=== PATIENT | female | born 1975 | race Caucasian/White ===

== ENCOUNTER → 2016-12-31 | Outpatient (CLI) | payer OTHER ==
[~2016-12-31] MED LIST: ALBU1AER9 INH; ASCO1CAP3 PO; BNT20 PO; CYM/30 PO; DIPH25TA24 PO; ESZO3TAB15 PO; GADAVIST IV PRN; LEVO1INJ13 PO; MAGN500T15 PO; MTR600X PO; OXYC-57 PO; PRLSR20 PO; PROM25TA9 PO; SALS500T10 PO; TIZA1CAP2 PO
--- NOTE | 2016-12-31 14:38 | DIAGNOSTIC IMAGING REPORT ---
MRI OF THE BRAIN WITHOUT AND WITH IV CONTRAST CLINICAL HISTORY: Headache. Abnormal previous MRI. COMPARISON STUDY: MRI of the brain January 26, 2013. TECHNIQUE: Utilizing a 1.5 Anne magnet and dedicated coil, multiplanar, multiecho imaging of the brain was performed pre and postcontrast administration. IV administration of 7.3 mL of Gadavist contrast was uneventful. FINDINGS: There are no areas of restricted diffusion. No acute intracranial hemorrhage, midline shift or mass effect is present. Brain volume is normal. Ventricular system is normal. Basilar cisterns are patent. There are no extra-axial collections. Flow-voids for the major intracranial vessels are present. There is no intracranial mass or pathologic enhancement. A few punctate foci of T2 hyperintensity within the white matter are similar to MRI January 26, 2013. No new areas of signal abnormality are present. Calvarial signal is diffusely diminished on the T1-weighted sequences. There is no abnormal calvarial enhancement in the appearance is unchanged since MRI of July 09, 2012. Orbits are unremarkable. There is mild polypoid mucosal thickening of the sinuses. IMPRESSION: 1. No acute intracranial findings. 2. No change in appearance of the brain since MRI of January 26, 2013. A few punctate foci of white matter T2 hyperintensity which could reflect minimal small vessel disease or sequela of migraine headaches. 3. No intracranial mass or pathologic enhancement. 4. Diffusely diminished calvarial signal. This is nonspecific but unchanged since MRI of July 09, 2012 and is therefore likely benign. Electronically signed by: Harjit Lara M.D. 12/31/2016 2:37 PM Dictated Date/Time: 12/31/2016 1:57 PM
== END | disposition home or self-care (01) ==
LOC: C.MRI 12:54
PROVIDERS: ATTEND Psychiatry & Neurology Neurology
DX: R51 Headache (principal); R90.89 Other abnormal findings on diagnostic imaging of central nervous system